=== PATIENT | male | born 1970 | race Caucasian/White ===

== ENCOUNTER 2022-09-08 21:32 | Inpatient (IN) | payer OTHER, SELFPAY ==
[2022-09-08] VITALS (9 sets, daily range): BP systolic 117–137; BP diastolic 77–95; PULSE 148–152; RESP 20–39; TEMP 36.9; O2SAT 94–99; BMI 39.5
--- NOTE | 2022-09-08 21:43 | DI.RAD.S_ITS ---
PROCEDURE: XR CHEST 1V INDICATIONS: chest pain TECHNIQUE: One view of the chest was acquired. COMPARISON: None. FINDINGS: Surgical changes and devices: None. Lungs and pleura: Lungs are edematous. No pleural effusions or pneumothorax. Mediastinum: Mediastinal contours appear normal. Heart size is mildly enlarged. Bones and chest wall: No suspicious bony lesions. Overlying soft tissues appear unremarkable. IMPRESSION: Mild cardiomegaly, mild to moderate pulmonary edema pattern bilaterally. Dictated by: Fernando Austin M.D. on 09/08/2022 at 21:52 Approved by: Fernando Austin M.D. on 09/08/2022 at 21:52
[2022-09-08] MEDS: ASPIRIN 81 MG CHEW TAB 324 MG PO (21:52)
[2022-09-08 22:05] LABS: Add Manual Diff / Slide Review NO; Basophils Absolute Auto 100 /uL (0-100); Basophils Percent Auto 1.3 % (0-2); Eosinophils Absolute Auto 200 /uL (0-450); Eosinophils Percent Auto 2.8 % (2-4); Hematocrit 43.9 % (41-53); Hemoglobin 14.7 g/dL (13.5-17.5); Lymphocytes Absolute Auto 2200 /uL (1100-4500); Mean Corpuscular HGB Conc 33.5 % (30-36); Mean Corpuscular Hemoglobin 28.6 PG (26-34); Mean Corpuscular Volume 85.2 fL (80-100); Monocytes Absolute Auto 700 /uL (0-900); Monocytes Percent Auto 8.1 % (3-14); Neutrophils Absolute Auto 5200 /uL (1500-7000); Neutrophils Percent Auto 61.8 % (50-75); Platelet Count 205 X10^3/uL (150-400); Red Blood Cell Count 5.15 X10^6/uL (4.5-5.9); Red Cell Distribution Width 13.9 % (11.6-14.8); White Blood Cell Count 8.4 X10^3/uL (4.5-11.0)
[2022-09-08 22:12] LABS: INR 1.3 (0.9-1.3)
[2022-09-08 22:15] LABS: PTT Partial Thromboplastin Tim 31 SECONDS (26-36)
--- NOTE | 2022-09-08 22:15 | DI.US.S_ITS ---
PROCEDURE: US PERIPH VENOUS LOW EXTREM BI INDICATIONS: EDEMA, WARMTH TECHNIQUE: Real-time imaging, as well as color and pulse Doppler interrogation, were performed of the deep veins of both legs from the inguinal ligament to the popliteal fossa. COMPARISON: None. FINDINGS: Right: The common femoral, femoral and popliteal veins are normally compressible, and free of intraluminal thrombus. Color and pulse Doppler demonstrate normal phasic intravascular flow. There is normal augmentation response to distal compression maneuver. Left: The common femoral, femoral and popliteal veins are normally compressible, and free of intraluminal thrombus. Color and pulse Doppler demonstrate normal phasic intravascular flow. There is normal augmentation response to distal compression maneuver. IMPRESSION: No DVT found over the lower extremities bilaterally. Dictated by: Fernando Austin M.D. on 09/08/2022 at 23:39 Approved by: Fernando Austin M.D. on 09/08/2022 at 23:39
--- NOTE | 2022-09-08 22:16 | ED_ITS ---
HPI - Arrhythmia/Palpitations General Chief Complaint: Arrhythmia/Palpitations Stated Complaint: Foot/knee/groin swelling Time Seen by Provider: 09/08/22 22:00 Source: patient Mode of arrival: Ambulatory Limitations: no limitations History of Present Illness HPI narrative: This is a 51-year-old male with no known medical issues, no prior surgeries who presents with bilateral lower extremity swelling patient states his feet felt tight starting SaturdaySeptember 03, he noticed increasing swelling in the lower legs and then today noticed swelling from the knees up to the testicular area. Patient states they feel warm tight just slightly uncomfortable. He states no chest pain, he states maybe some shortness of breath he feels like his breathing is shallow. He does note that he has not been able to lie flat this week. Patient denies fevers or chills. Denies lightheadedness or passing out. No nausea or vomiting. No diaphoresis. He denies any back pain. Some lower abdominal fullness but states he is also been constipated. Patient denies any sensation that her heart has been fast although he is tachycardic in the department. Patient states he has a PCP but does not get annual checks. No known medical issues no daily medications. No prior surgeries. He denies any drug allergies. No tobacco, he states he drinks 2 or 3 alcoholic drinks 2 or 3 times weekly. Denies any illicit. States he is adopted and does not know his family history. He notes that he had some sort of viral illness over [place] vacation he works as a school admissions representative so he did sit in his chair little bit more than he would typically do at home during that time. Patient states his only family currently is his 18-year-old son who lives with the patient. Related Data Allergies Allergy/AdvReac Type Severity Reaction Status Date / Time No Known Drug Allergies Allergy Verified 09/08/22 21:51 Review of Systems Review of Systems ROS Unobtainable: All systems reviewed & are unremarkable except as noted in HPI and below Patient History Social History Smoking Status: Never smoker Smoking Status: Never smoker alcohol intake frequency: a few times a week Substance Use Type: does not use Exam Narrative Exam Narrative: GENERAL: Alert and oriented x three, mild distress. HEENT: Head normocephalic, atraumatic, EOMI, pupils reactive, face symmetric, moist mucous membranes NECK: Supple, full range of motion CARDIOVASCULAR: Tachycardic but Regular rate and rhythm without murmurs, rubs or gallops. Mild JVD. Bilateral lower extremity swelling extending up to the groin. Nonpitting. Patient does have some warmth redness in the lower extremities right and left. Patient also has some chronic venous stasis changes. RESPIRATORY: Breath sounds equal bilaterally, no wheezes rales or rhonchi. ABDOMEN: Soft, nontender. Normoactive bowel sounds all 4 quadrants. No guarding or rebound, rigidity, no mass : No CVA tenderness EXTREMITIES: Normal range of motion, no clubbing or edema. Neurovascularly intact NEUROLOGICAL: Cranial nerves II through XII grossly intact. Moving all extremities SKIN: Warm, dry, no petechiae, no rashes or lesions. Initial Vital Signs Initial Vital Signs: Vital Signs Temperature 98.4 F 09/08/22 21:35 Pulse Rate 152 H 09/08/22 21:35 Respiratory Rate 20 09/08/22 21:35 Blood Pressure 135/92 H 09/08/22 21:35 Pulse Oximetry 99 09/08/22 21:35 Oxygen Delivery Method 09/08/22 21:35 Course Orders Ordered: ED Orders 09/08/22 21:43 XR chest 1V Stat EKG-12 Lead Stat 09/08/22 21:52 BNP [NT-proBNP (BNP-Adult 18+)] Stat Complete Blood Count AUTO DIFF Stat Comprehensive Metabolic Panel Stat D Dimer Stat Lipase Stat Magnesium Stat Partial Thromboplastin Time Stat Prothrombin Time INR Stat Troponin & CK Cardiac Panel Stat 09/08/22 22:00 COVID19 -Nasal RAPID/Pre-Proc Stat 09/08/22 22:15 periph venous low extrem bi Stat 09/08/22 22:51 CT angio chest PE protocol Stat Discontinued Medications Aspirin (Aspirin 81 Mg Chew Tab) 324 mg PO NOW ONE Stop: 09/08/22 21:44 Last Admin: 09/08/22 21:52 Dose: 324 mg Documented By: AT Furosemide (Furosemide 40 Mg/4 Ml Vial) 40 mg IV NOW ONE Stop: 09/08/22 22:17 Last Admin: 09/08/22 22:29 Dose: 40 mg Documented By: Vital Signs Vital signs: Vital Signs - 8 hr 09/08/22 21:35 Temperature 98.4 F Pulse Rate 152 H Respiratory Rate 20 Blood Pressure 135/92 H Pulse Oximetry 99 Oxygen Delivery Method Room Air MDM - Arrhythmia/Palpitations Lab Data Result diagrams: 09/08/22 21:52 09/08/22 21:52 Labs: Lab Results 09/08/22 09/08/22 09/08/22 Range/Units 21:52 21:52 21:52 WBC 8.4 (4.5-11.0) X10^3/uL RBC 5.15 (4.5-5.9) X10^6/uL Hgb 14.7 (13.5-17.5) g/dL Hct 43.9 (41-53) % MCV 85.2 (80-100) fL MCH 28.6 (26-34) PG MCHC 33.5 (30-36) % RDW 13.9 (11.6-14.8) % Plt Count 205 (150-400) X10^3/uL Neut % (Auto) 61.8 (50-75) % Lymph % (Auto) 26.0 (25-40) % Isabella % (Auto) 8.1 (3-14) % Eos % (Auto) 2.8 (2-4) % Baso % (Auto) 1.3 (0-2) % Neut # (Auto) 5200 (2474-7522) /uL Lymph # (Auto) 2200 (8586-8946) /uL Isabella # (Auto) 700 (0-900) /uL Eos # (Auto) 200 (0-450) /uL Baso # (Auto) 100 (0-100) /uL PT 15.0 H (10.1-12.7) SECONDS INR 1.3 (0.9-1.3) APTT 31 (26-36) SECONDS D-Dimer (<500) ng/ml Sodium 140 (137-145) mmol/L Potassium 3.9 (3.4-5.1) mmol/L Chloride 104 (98-107) mmol/L Carbon Dioxide 26 (22-32) mmol/L BUN 16 (9-20) mg/dL Creatinine 0.95 (0.66-1.25) mg/dL Estimated GFR > 60 (>60) mL/min BUN/Creatinine Ratio 16.8 (6-22) Glucose 137 H (70-100) mg/dL Calcium 8.8 (8.4-10.2) mg/dL Magnesium 2.1 (1.6-2.3) mg/dL Total Bilirubin 0.8 (0.2-1.3) mg/dL AST 32 (17-59) IU/L ALT 25 (<50) IU/L Alkaline Phosphatase 71 (38-126) U/L Total Creatine Kinase 160 (55-170) U/L CK-MB (CK-2) 1.63 (<2.37) ng/mL CK-MB (CK-2) Rel Index 1.0 L (1.5-5.0) % Troponin I < 0.012 (0.01-0.034) ng/mL NT-Pro-B Natriuret Pep (<125) pg/mL Total Protein 7.4 (6.3-8.2) g/dL Albumin 4.1 (3.5-5.0) g/dL Globulin 3.3 (1.7-4.1) g/dL Albumin/Globulin Ratio 1.2 (1.0-2.8) Lipase 87 (23-300) U/L SARS-CoV-2 (PCR) (Negative) 09/08/22 09/08/22 09/08/22 Range/Units 21:52 21:52 22:00 WBC (4.5-11.0) X10^3/uL RBC (4.5-5.9) X10^6/uL Hgb (13.5-17.5) g/dL Hct (41-53) % MCV (80-100) fL MCH (26-34) PG MCHC (30-36) % RDW (11.6-14.8) % Plt Count (150-400) X10^3/uL Neut % (Auto) (50-75) % Lymph % (Auto) (25-40) % Isabella % (Auto) (3-14) % Eos % (Auto) (2-4) % Baso % (Auto) (0-2) % Neut # (Auto) (9030-7818) /uL Lymph # (Auto) (4970-1094) /uL Isabella # (Auto) (0-900) /uL Eos # (Auto) (0-450) /uL Baso # (Auto) (0-100) /uL PT (10.1-12.7) SECONDS INR (0.9-1.3) APTT (26-36) SECONDS D-Dimer 1570 H (<500) ng/ml Sodium (137-145) mmol/L Potassium (3.4-5.1) mmol/L Chloride (98-107) mmol/L Carbon Dioxide (22-32) mmol/L BUN (9-20) mg/dL Creatinine (0.66-1.25) mg/dL Estimated GFR (>60) mL/min BUN/Creatinine Ratio (6-22) Glucose (70-100) mg/dL Calcium (8.4-10.2) mg/dL Magnesium (1.6-2.3) mg/dL Total Bilirubin (0.2-1.3) mg/dL AST (17-59) IU/L ALT (<50) IU/L Alkaline Phosphatase (38-126) U/L Total Creatine Kinase (55-170) U/L CK-MB (CK-2) (<2.37) ng/mL CK-MB (CK-2) Rel Index (1.5-5.0) % Troponin I (0.01-0.034) ng/mL NT-Pro-B Natriuret Pep 1180 H (<125) pg/mL Total Protein (6.3-8.2) g/dL Albumin (3.5-5.0) g/dL Globulin (1.7-4.1) g/dL Albumin/Globulin Ratio (1.0-2.8) Lipase (23-300) U/L SARS-CoV-2 (PCR) Negative (Negative) Imaging Data Chest x-ray: Radiologist's Impresson: [address] [address] XRay Report Signed Patient: Giorgio Escoto MR#: [id number] : 1970 Acct:[id number] Age/Sex: 51 / M Date of Service: 09/08/22 Loc: ED Accession Number: [id number] ?? Procedure: XR chest 1V Ordering Provider: Porsha Urban D.O. PROCEDURE:? XR CHEST 1V ? INDICATIONS:? chest pain ? TECHNIQUE:? One view of the chest was acquired.? ? COMPARISON:? None. ? FINDINGS:? ? Surgical changes and devices:? None.? ? Lungs and pleura:? Lungs are edematous.? No pleural effusions or pneumothorax.? ? Mediastinum:? Mediastinal contours appear normal.? Heart size is mildly enlar ged.? ? Bones and chest wall:? No suspicious bony lesions.? Overlying soft tissues appear unremarkable.? ? IMPRESSION:? Mild cardiomegaly, mild to moderate pulmonary edema pattern bilaterally. ? ? Dictated by: Fernando Austin M.D. on 09/08/2022 at 21:52 ? ? Approved by: Fernando Austin M.D. on 09/08/2022 at 21:52?? ECG Data Attestation: I personally reviewed and interpreted this ECG as follows: Prior ECG tracings: not available for review Interpretation: Sinus tachycardia rate of 140 9p are 148 QRS 80 QTC 311. Patient does appear to have P waves present with each QRS narrow. Patient does not have priors for comparison. No acute ST elevation appreciated. MDM Narrative Medical decision making narrative: This is a 51-year-old male who presents appears to be clinically fluid overloaded and in CHF he does have warmth and redness to his legs and did have a period where he was sitting little bit longer. Also tachycardic pretty persistently in the 150 range does appear to be more sinus patient appears to have P waves with his QRS. Patient does not have any known cardiac history he does not follow regularly with a primary care physician he does not have any sensation that he has been tachycardic and I suspect he is been a situation for some time. Swelling has been worsening over the past week. He denies chest pain or pressure. Plan for cardiac workup, chest x-ray does show some pulmonary edema cardiomegaly bilateral DVTs and D-dimer were obtained to evaluate for possible pulmonary emboli. Patient also notes that he had a recent viral type illness over [place] so myocarditis as possibility as well. Result show Discharge Plan Departure Referrals: Naima Priest PA-C [Primary Care Provider] -
[2022-09-08 22:17] LABS: Alanine Aminotransferase 25 IU/L (<50); Albumin 4.1 g/dL (3.5-5.0); Albumin Globulin Ratio 1.2 (1.0-2.8); Alkaline Phosphatase 71 U/L (38-126); Aspartate Aminotransferase 32 IU/L (17-59); BUN Creatinine Ratio 16.8 (6-22); Bilirubin Total 0.8 mg/dL (0.2-1.3); Blood Urea Nitrogen 16 mg/dL (9-20); Calcium 8.8 mg/dL (8.4-10.2); Carbon Dioxide 26 mmol/L (22-32); Chloride 104 mmol/L (98-107); Creatine Kinase 160 U/L (55-170); Estimated Glomerular Filt Rate > 60 mL/min (>60); Globulin 3.3 g/dL (1.7-4.1); Glucose 137 mg/dL (70-100); HEMOLYSIS < 15 (0-50); Lipase 87 U/L (23-300); Magnesium 2.1 mg/dL (1.6-2.3); Potassium 3.9 mmol/L (3.4-5.1); Sodium 140 mmol/L (137-145); Total Protein 7.4 g/dL (6.3-8.2)
[2022-09-08 22:17] LABS: COVID19 -Nasal RAPID Negative (Negative)
[2022-09-08 22:28] LABS: Troponin I < 0.012 ng/mL (0.01-0.034)
[2022-09-08] MEDS: FUROSEMIDE 40 MG/4 ML VIAL IV (22:29)
[2022-09-08 22:32] LABS: Creatine Kinase MB 1.63 ng/mL (<2.37); NT-proBNP (BNP-Adult 18+) 1180 pg/mL (<125)
[2022-09-08 22:41] LABS: D Dimer 1570 ng/ml (<500)
--- NOTE | 2022-09-08 22:51 | DI.CT.S_ITS ---
PROCEDURE: CT ANGIO CHEST PE PROTOCOL INDICATIONS: concern for PE, tachycardia, chf, swelling legs TECHNIQUE: After the administration of intravenous contrast, 2 mm thick sections acquired from the pulmonary apices to the posterior costophrenic angles. 3-dimensional maximum intensity projection (MIP) coronal and sagittal reformats were then acquired through the thorax. For radiation dose reduction, the following was used: automated exposure control, adjustment of mA and/or kV according to patient size. COMPARISON: [facility], CR, XR CHEST 1V, 09/08/2022, 21:41. FINDINGS: Image quality: Excellent. Pulmonary arteries: Pulmonary arteries are normal in size, and demonstrate no intraluminal filling defects to suggest central pulmonary embolism. Lungs and pleura: Lungs are mildly edematous. There are small to moderate bilateral posterior layering pleural effusions and no pneumothorax. Central and peripheral airways are patent. Mediastinum: Heart size is mildly enlarged, without pericardial effusion. No mediastinal or hilar adenopathy. Thoracic aorta is normal in caliber and enhancement. Esophagus is normal in caliber, without hiatal hernia. Bones and chest wall: No suspicious bony lesions. Ribs and thoracic spine appear intact throughout. Thyroid gland appears normal where well seen. No axillary or supraclavicular adenopathy. Abdomen: Visualized upper abdominal solid organs appear normal in the early arterial phase of enhancement. IMPRESSION: No pulmonary embolus found. Mild cardiomegaly, mild generalized pulmonary edema, and small to moderate bilateral posterior free-flowing pleural effusions. No pneumonia found. Dictated by: Fernando Austin M.D. on 09/08/2022 at 23:39 Approved by: Fernando Austin M.D. on 09/08/2022 at 23:41
--- NOTE | 2022-09-08 23:24 | ED_ITS ---
HPI - Arrhythmia/Palpitations General Chief Complaint: Arrhythmia/Palpitations Stated Complaint: Foot/knee/groin swelling Time Seen by Provider: 09/08/22 22:00 Source: patient Mode of arrival: Ambulatory Limitations: no limitations Related Data Allergies Allergy/AdvReac Type Severity Reaction Status Date / Time No Known Drug Allergies Allergy Verified 09/08/22 21:51 Patient History Social History Smoking Status: Never smoker Smoking Status: Never smoker alcohol intake frequency: a few times a week Substance Use Type: does not use Exam Initial Vital Signs Initial Vital Signs: Vital Signs Temperature 98.4 F 09/08/22 21:35 Pulse Rate 152 H 09/08/22 21:35 Respiratory Rate 20 09/08/22 21:35 Blood Pressure 135/92 H 09/08/22 21:35 Pulse Oximetry 99 09/08/22 21:35 Oxygen Delivery Method 09/08/22 21:35 Course Orders Ordered: ED Orders 09/08/22 21:43 XR chest 1V Stat EKG-12 Lead Stat 09/08/22 21:52 BNP [NT-proBNP (BNP-Adult 18+)] Stat Complete Blood Count AUTO DIFF Stat Comprehensive Metabolic Panel Stat D Dimer Stat Lipase Stat Magnesium Stat Partial Thromboplastin Time Stat Prothrombin Time INR Stat Troponin & CK Cardiac Panel Stat 09/08/22 22:00 COVID19 -Nasal RAPID/Pre-Proc Stat 09/08/22 22:15 periph venous low extrem bi Stat 09/08/22 22:51 CT angio chest PE protocol Stat Discontinued Medications Aspirin (Aspirin 81 Mg Chew Tab) 324 mg PO NOW ONE Stop: 09/08/22 21:44 Last Admin: 09/08/22 21:52 Dose: 324 mg Documented By: AT Furosemide (Furosemide 40 Mg/4 Ml Vial) 40 mg IV NOW ONE Stop: 09/08/22 22:17 Last Admin: 09/08/22 22:29 Dose: 40 mg Documented By: GC Consultations Consultation #1: Dr. Perez, cardiology-discussed patient Vital Signs Vital signs: Vital Signs - 8 hr 09/08/22 21:35 Temperature 98.4 F Pulse Rate 152 H Respiratory Rate 20 Blood Pressure 135/92 H Pulse Oximetry 99 Oxygen Delivery Method Room Air MDM - Arrhythmia/Palpitations Lab Data Result diagrams: 09/08/22 21:52 09/08/22 21:52 Labs: Lab Results 09/08/22 09/08/22 09/08/22 Range/Units 21:52 21:52 21:52 WBC 8.4 (4.5-11.0) X10^3/uL RBC 5.15 (4.5-5.9) X10^6/uL Hgb 14.7 (13.5-17.5) g/dL Hct 43.9 (41-53) % MCV 85.2 (80-100) fL MCH 28.6 (26-34) PG MCHC 33.5 (30-36) % RDW 13.9 (11.6-14.8) % Plt Count 205 (150-400) X10^3/uL Neut % (Auto) 61.8 (50-75) % Lymph % (Auto) 26.0 (25-40) % [place] % (Auto) 8.1 (3-14) % Eos % (Auto) 2.8 (2-4) % Baso % (Auto) 1.3 (0-2) % Neut # (Auto) 5200 (8828-6368) /uL Lymph # (Auto) 2200 (8373-3396) /uL [place] # (Auto) 700 (0-900) /uL Eos # (Auto) 200 (0-450) /uL Baso # (Auto) 100 (0-100) /uL PT 15.0 H (10.1-12.7) SECONDS INR 1.3 (0.9-1.3) APTT 31 (26-36) SECONDS D-Dimer (<500) ng/ml Sodium 140 (137-145) mmol/L Potassium 3.9 (3.4-5.1) mmol/L Chloride 104 (98-107) mmol/L Carbon Dioxide 26 (22-32) mmol/L BUN 16 (9-20) mg/dL Creatinine 0.95 (0.66-1.25) mg/dL Estimated GFR > 60 (>60) mL/min BUN/Creatinine Ratio 16.8 (6-22) Glucose 137 H (70-100) mg/dL Calcium 8.8 (8.4-10.2) mg/dL Magnesium 2.1 (1.6-2.3) mg/dL Total Bilirubin 0.8 (0.2-1.3) mg/dL AST 32 (17-59) IU/L ALT 25 (<50) IU/L Alkaline Phosphatase 71 (38-126) U/L Total Creatine Kinase 160 (55-170) U/L CK-MB (CK-2) 1.63 (<2.37) ng/mL CK-MB (CK-2) Rel Index 1.0 L (1.5-5.0) % Troponin I < 0.012 (0.01-0.034) ng/mL NT-Pro-B Natriuret Pep (<125) pg/mL Total Protein 7.4 (6.3-8.2) g/dL Albumin 4.1 (3.5-5.0) g/dL Globulin 3.3 (1.7-4.1) g/dL Albumin/Globulin Ratio 1.2 (1.0-2.8) Lipase 87 (23-300) U/L SARS-CoV-2 (PCR) (Negative) 09/08/22 09/08/22 09/08/22 Range/Units 21:52 21:52 22:00 WBC (4.5-11.0) X10^3/uL RBC (4.5-5.9) X10^6/uL Hgb (13.5-17.5) g/dL Hct (41-53) % MCV (80-100) fL MCH (26-34) PG MCHC (30-36) % RDW (11.6-14.8) % Plt Count (150-400) X10^3/uL Neut % (Auto) (50-75) % Lymph % (Auto) (25-40) % [place] % (Auto) (3-14) % Eos % (Auto) (2-4) % Baso % (Auto) (0-2) % Neut # (Auto) (6252-7334) /uL Lymph # (Auto) (4508-8295) /uL [place] # (Auto) (0-900) /uL Eos # (Auto) (0-450) /uL Baso # (Auto) (0-100) /uL PT (10.1-12.7) SECONDS INR (0.9-1.3) APTT (26-36) SECONDS D-Dimer 1570 H (<500) ng/ml Sodium (137-145) mmol/L Potassium (3.4-5.1) mmol/L Chloride (98-107) mmol/L Carbon Dioxide (22-32) mmol/L BUN (9-20) mg/dL Creatinine (0.66-1.25) mg/dL Estimated GFR (>60) mL/min BUN/Creatinine Ratio (6-22) Glucose (70-100) mg/dL Calcium (8.4-10.2) mg/dL Magnesium (1.6-2.3) mg/dL Total Bilirubin (0.2-1.3) mg/dL AST (17-59) IU/L ALT (<50) IU/L Alkaline Phosphatase (38-126) U/L Total Creatine Kinase (55-170) U/L CK-MB (CK-2) (<2.37) ng/mL CK-MB (CK-2) Rel Index (1.5-5.0) % Troponin I (0.01-0.034) ng/mL NT-Pro-B Natriuret Pep 1180 H (<125) pg/mL Total Protein (6.3-8.2) g/dL Albumin (3.5-5.0) g/dL Globulin (1.7-4.1) g/dL Albumin/Globulin Ratio (1.0-2.8) Lipase (23-300) U/L SARS-CoV-2 (PCR) Negative (Negative) Discharge Plan Departure Referrals: Naima Priest PA-C [Primary Care Provider] -
[2022-09-09] VITALS (66 sets, daily range): BP systolic 83–153; BP diastolic 54–107; PULSE 113–150; RESP 18–45; TEMP 36.6–37.3; O2SAT 89–97; BMI 40.8
[2022-09-09] MEDS: ADENOSINE 6 MG/2 ML VIAL IV (00:18)
[2022-09-09] MEDS: ADENOSINE 6 MG/2 ML VIAL 12 MG IV (00:26)
[2022-09-09] MEDS: METOPROLOL TARTRATE 5 MG/5 ML INJ IV (00:35)
[2022-09-09 01:09] LABS: Troponin I < 0.012 ng/mL (0.01-0.034)
--- NOTE | 2022-09-09 01:50 | DI.ECHO.S_ITS ---
[facility] +---------+ [facility] +---------+ : : [address] : : : : [id number] : : : : Phone: [phone]+ Echocardiogram Report + + :Name: LAMONTE SAMUEL Study Date: 09/09/2022 Height: 74 in : :[facility] ReadingLocation: Weight: 308 lb : : Gender: Male BSA: 2.6 m2 : :: 1970 Age: 51 yrs BP: 112/69 mmHg: :Reason For Study: Possible atrial flutter, edema, new CHF : :Ordering Physician: RAJAN, : :JUSTINO Performed By: Dee Amos : :Referring: JUSTINO TOLENTINO : + + Interpretation Summary The patient was in atrial flutter with heart rates between 110-120 bpm during the exam. The left ventricle is normal in size. The ejection fraction is estimated to be 20-25%. There is severe global hypokinesis of the left ventricle. There is no thrombus. The right ventricle is grossly normal size. Right ventricular systolic function is moderately reduced. There is severe biatrial enlargement. There is moderate mitral regurgitation. The mitral regurgitant jet is eccentrically directed. There is moderate tricuspid regurgitation. The right ventricular systolic pressure is estimated to be at least 33 mmHg based on an estimated right atrial pressure of 15 mm Hg. The study quality was technically difficult. Procedure: A two-dimensional transthoracic echocardiogram with color flow and Doppler was performed. The study quality was technically difficult. A contrast injection of Definity was performed to improve assessment of LV function. The patient was in atrial flutter with heart rates between 110-120 bpm during the exam. Left Ventricle: The left ventricle is normal in size. Left ventricular wall thickness is at the upper limits of normal. There is no thrombus. The ejection fraction is estimated to be 20-25%. There is severe global hypokinesis of the left ventricle. Diastolic function could not be accurately assessed due to tachycardia. Right Ventricle: The right ventricle is not well visualized. The right ventricle is grossly normal size. Right ventricular systolic function is moderately reduced. Atria: The left atrium is severely dilated. There is severe biatrial enlargement. The right atrium is severely dilated. There is no Doppler evidence for an interatrial shunt. Mitral Valve: The mitral valve leaflets are slightly calcified. There is mild mitral annular calcification. There is moderate mitral regurgitation. The mitral regurgitant jet is eccentrically directed. Aortic Valve: The aortic valve is normal in structure and function. The aortic valve is trileaflet. There is no aortic valve stenosis. No aortic regurgitation is present. Tricuspid Valve: The tricuspid valve is normal. There is moderate tricuspid regurgitation. The right ventricular systolic pressure is estimated to be at least 33 mmHg based on an estimated right atrial pressure of 15 mm Hg. Pulmonic Valve: The pulmonic valve leaflets are thin and pliable; valve motion is normal. There is trace pulmonic regurgitation. Great Vessels: The aortic root is mildly dilated. The ascending aorta is at the upper limits of normal in size. The IVC is dilated (diameter is greater than 2.1 cm) and it collapses less than 50% with a sniff. This suggests a high right atrial pressure of 15 mm Hg. Pericardium/ Pleura There is no pericardial effusion. There is no pleural effusion. MMode/2D Measurements & Calculations LVIDd: 5.1 cm LVOT diam: 2.6 cm LVIDs: 4.3 cm Ao root diam: 4.0 cm FS: 15.7 % asc Aorta Diam: 3.5 cm EPSS: 2.1 cm IVSd: 1.1 cm LVPWd: 1.0 cm LV elizondo. diameter/BSA (cm/m^2): 2.0 LV sys. diameter/BSA (cm/m^2): 1.6 LA dimension: 5.1 cm RA long axis: 6.9 cm LA A2 area: 32.7 cm2 RA area: 33.9 cm2 LA A4 area: 29.5 cm2 RA vol: 141.6 ml LA length (vol): 6.6 cm RA : 54.2 ml/m2 LA vol: 123.5 ml LA vol index: 47.3 ml/m2 LVLs ap4: 7.3 cm LVLd ap2: 9.5 cm LVLs ap2: 8.0 cm TAPSE_phl: 1.5 cm Doppler Measurements & Calculations Ao V2 max: 75.7 cm/sec LVOT Max Alexi: 58.4 cm/sec Ao V2 mean: 61.0 cm/sec LV V1 max P.4 mmHg Ao max P.0 mmHg LV V1 VTI: 11.6 cm Ao mean P.0 mmHg HAIM(I,D): 4.8 cm2 Ao V2 VTI: 12.8 cm HAIM(V,D): 4.1 cm2 sev ratio: 0.91 HAIM indexed to BSA (cm^2/m^2): 1.8 MV E max alexi: 75.8 cm/sec TR max alexi: 185.5 cm/sec MVA(VTI): 5.5 cm2 TR max P.6 mmHg PA V2 max: 38.8 cm/sec PA V2 mean: 27.4 cm/sec PA mean P.00 mmHg MV V2 mean: 53.7 cm/sec MR VTI: 107.0 cm MV mean P.5 mmHg MV V2 VTI: 11.3 cm SV(LVOT): 61.6 ml AV VR_phl: 0.77 HAIM(VTI)/BSA_phl: 1.8 Reading Physician:03:27 PM
[2022-09-09 01:53] LABS: UR Morphine/Opiate cutoff 300 Negative (Negative); Ur Creatinine 20 (Normal); Ur Specific Gravity 1.015 (Normal); Urine Amphetamines Negative (Negative); Urine Barbiturates Negative (Negative); Urine Benzodiazepines Negative (Negative); Urine Cocaine Negative (Negative); Urine MDMA Negative (Negative); Urine Methadone Negative (Negative); Urine Methamphetamines Negative (Negative); Urine Oxycodone Negative (Negative); Urine Phencyclidine Negative (Negative); Urine Tetrahydrocannabinol Negative (Negative); Urine Tricyclic Antidepressant Negative (Negative); Urine pH 5 (Normal)
[2022-09-09] MEDS: ESMOLOL 2.5 GM/250 ML IV.SOLN IV ×4 (02:00→20:57)
--- NOTE | 2022-09-09 02:10 | PM.HP.1 ---
History of Present Illness History of Present Illness Date Patient Seen: 09/09/22 Time Patient Seen: 02:10 Chief complaint: Foot/knee/groin swelling Narrative: Giorgio Escoto is a 51-year-old male with no known medical history, no medications who presents with bilateral lower extremity swelling x1 week but is worsened in the last 24 hours, initially swelling in the lower legs, today noticed swelling from the knees up to the testicular area. Patient notes increasing mild shortness of breath, with orthopnea. Denies chest pain, unable to lie flat, denies fevers, body aches, chills, lightheadedness, LOC, nausea, vomiting, diaphoresis, back pain, urinary urgency frequency dysuria, hematuria, melena, changes in bowel, cough, congestion, ear or eye discomfort, recent injury or trauma.? Some abdominal fullness due to constipation. Patient's has no sensation or symptoms his tachycardia.? Patient states he has a PCP but does not get annual checks.? He denies any drug allergies.? No tobacco, he reports a distant history smoking. alcoholic drinks 2 or 3 times weekly.? Denies any illicit.? States he is adopted and does not know his family history.? He notes that he had some sort of viral illness over [place] vacation he works as a high school social science teacher.? Patient states his only family currently is his 18-year-old son who lives with the patient. In the ED patient's blood pressure is ran between 135/92 to 117/80, HR 152-148, patient's tachycardia was resistant to 12 mg of adenosine, and 5 mg of metoprolol. Patient's labs are predominantly unremarkable, stable potassium 3.9, magnesium 2.1, elevated PT 15, with normal INR 1.5, D-dimer 1570, CTA is negative for PE noted mild cardiomegaly a mild generalized pulmonary edema bilaterally, small to moderate bilateral post free-flowing pleural effusion. Negative COVID, during admit exam patient's O2 saturation dropped to 80% on room air multiple times, and was extremely labile, patient was placed on 2 L nasal cannula. troponins negative x2, EKG sinus tachycardia rate 140, P-QRS, no ST or T-wave changes. No notes, labs, or diagnostics for comparison. Vascular ultrasound of lower extremities are negative for DVT. Patient admitted for tachycardia, tachypnea, bilateral lower extremity edema, new onset CHF, acute respiratory failure with hypoxia. Patient History Medical History (Updated 09/09/22 @ 05:57 by MARIELLA Awan) BMI 40.0-44.9, adult Surgical History (Updated 09/09/22 @ 05:57 by MARIELLA Awan) History of hernia repair History of tonsillectomy Family & Social History Family History Other Adopted Safety & Behavioral: Feels Safe in Current Yes Environment Tobacco & Substance use: Smoking Status Never smoker alcohol intake frequency a few times a week Substance Use Type does not use Meds Home Medications and Allergies Allergies Allergy/AdvReac Type Severity Reaction Status Date / Time No Known Drug Allergies Allergy Verified 09/08/22 21:51 Review of Systems Review of Systems Narrative: All 12 point systems reviewed with the patient and are negative except otherwise documented. Exam Vital Signs (past 8 hours): - 09/08/22 21:35 09/08/22 21:45 09/08/22 22:00 Temperature 98.4 F Pulse Rate 152 H 150 H 149 H Respiratory Rate 20 25 H Blood Pressure 135/92 H 119/77 117/80 Pulse Oximetry 99 95 Oxygen Delivery Method Room Air 09/08/22 22:15 09/08/22 22:30 09/08/22 22:45 Temperature Pulse Rate 150 H 150 H 149 H Respiratory Rate 33 H 27 H 28 H Blood Pressure 137/95 H Pulse Oximetry 96 95 96 Oxygen Delivery Method 09/08/22 23:00 09/08/22 23:15 09/08/22 22:30 Temperature Pulse Rate 149 H 148 H 150 H Respiratory Rate 29 H 31 H Blood Pressure Pulse Oximetry 95 98 94 Oxygen Delivery Method 09/08/22 23:45 09/09/22 00:00 09/09/22 01:11 Temperature Pulse Rate 150 H 150 H 145 H Respiratory Rate 39 H 32 H 35 H Blood Pressure 123/84 Pulse Oximetry 95 93 95 Oxygen Delivery Method 09/09/22 01:19 09/09/22 01:19 09/09/22 01:30 Temperature Pulse Rate 145 H Respiratory Rate 43 H Blood Pressure 109/76 119/68 Pulse Oximetry 97 Oxygen Delivery Method 09/09/22 01:30 Temperature Pulse Rate 144 H Respiratory Rate 31 H Blood Pressure Pulse Oximetry 95 Oxygen Delivery Method Oxygen Delivery Method Room Air Narrative Exam Narrative: General: Patient is a well-developed, well-nourished male in no acute distress at this time, patient does not feel tachycardia, would noted observable increased work of breathing and use abdominal accessory muscles. HEENT: Normocephalic, atraumatic, extraocular muscles intact, oral pharynx is clear and mucous membranes are moist. Neck is supple and symmetric, trachea is midline, no adenopathy, no thyroid enlargement, nontender, no masses palpated. Mild JVD Chest: Normal AP diameter and contour without kyphoscoliosis, no nasal flaring, Positive retractions,tachypneic and labored breathing. Lungs: Auscultation of all lung rolle are clear shallow without adventitious sounds, wheezes, rhonchi, or rales. Cardio: Tachycardic regular and rhythm without murmur, rubs, or gallops, no carotid bruit, no cardiac pulsations present. Abdomen: Soft nontender, negative for organomegaly, or masses. Bowel sounds are present in all 4 quadrants without guarding or rebound, no CVA tenderness. Musculoskeletal: Muscle strength and tone are equal within normal limits, no deformity, crepitus, effusions, cyanosis, clubbing present. Full range of motion intact radial and pedal pulses are normal. Bilateral equal nonpitting edema from testicles to feet. Skin: Warm dry and intact without rashes, ulcerations or petechiae. With the exception of bilateral legs which are warm to touch, and mild diffuse redness no skin injuries/cellulitis noted. Neuro: Alert and orientated x3, strength is +5/5 in all extremities, sensation to touch intact, no gross deficits noted of cranial nerves. Psych: Patient has a well-kept appearance, appropriate affect, mental status attitude thought context and judgment are appropriate for age. Objective Labs Result Diagrams: 09/09/22 04:29 09/09/22 04:29 Labs: Laboratory Results - last 24 hr 09/08/22 09/08/22 09/08/22 21:52 21:52 21:52 WBC 8.4 RBC 5.15 Hgb 14.7 Hct 43.9 MCV 85.2 MCH 28.6 MCHC 33.5 RDW 13.9 Plt Count 205 Neut % (Auto) 61.8 Lymph % (Auto) 26.0 Bullitt % (Auto) 8.1 Eos % (Auto) 2.8 Baso % (Auto) 1.3 Neut # (Auto) 5200 Lymph # (Auto) 2200 Bullitt # (Auto) 700 Eos # (Auto) 200 Baso # (Auto) 100 PT 15.0 H INR 1.3 APTT 31 D-Dimer Sodium 140 Potassium 3.9 Chloride 104 Carbon Dioxide 26 BUN 16 Creatinine 0.95 Estimated GFR > 60 BUN/Creatinine Ratio 16.8 Glucose 137 H Calcium 8.8 Magnesium 2.1 Total Bilirubin 0.8 AST 32 ALT 25 Alkaline Phosphatase 71 Total Creatine Kinase 160 CK-MB (CK-2) 1.63 CK-MB (CK-2) Rel Index 1.0 L Troponin I < 0.012 NT-Pro-B Natriuret Pep Total Protein 7.4 Albumin 4.1 Globulin 3.3 Albumin/Globulin Ratio 1.2 Lipase 87 U Opiates 300ng/mL cut Ur Oxycodone Screen Urine Methadone Screen Ur Barbiturates Screen U Tricyclic Antidepress Ur Phencyclidine Scrn Ur Amphetamines Screen U Methamphetamines Scrn Ur MDMA Scrn (Ecstasy) U Benzodiazepines Scrn Urine Cocaine Screen U Marijuana (THC) Screen SARS-CoV-2 (PCR) 09/08/22 09/08/22 09/08/22 21:52 21:52 22:00 WBC RBC Hgb Hct MCV MCH MCHC RDW Plt Count Neut % (Auto) Lymph % (Auto) Bullitt % (Auto) Eos % (Auto) Baso % (Auto) Neut # (Auto) Lymph # (Auto) Bullitt # (Auto) Eos # (Auto) Baso # (Auto) PT INR APTT D-Dimer 1570 H Sodium Potassium Chloride Carbon Dioxide BUN Creatinine Estimated GFR BUN/Creatinine Ratio Glucose Calcium Magnesium Total Bilirubin AST ALT Alkaline Phosphatase Total Creatine Kinase CK-MB (CK-2) CK-MB (CK-2) Rel Index Troponin I NT-Pro-B Natriuret Pep 1180 H Total Protein Albumin Globulin Albumin/Globulin Ratio Lipase U Opiates 300ng/mL cut Ur Oxycodone Screen Urine Methadone Screen Ur Barbiturates Screen U Tricyclic Antidepress Ur Phencyclidine Scrn Ur Amphetamines Screen U Methamphetamines Scrn Ur MDMA Scrn (Ecstasy) U Benzodiazepines Scrn Urine Cocaine Screen U Marijuana (THC) Screen SARS-CoV-2 (PCR) Negative 09/09/22 09/09/22 00:07 01:42 WBC RBC Hgb Hct MCV MCH MCHC RDW Plt Count Neut % (Auto) Lymph % (Auto) Bull[place] % (Auto) Eos % (Auto) Baso % (Auto) Neut # (Auto) Lymph # (Auto) [place] # (Auto) Eos # (Auto) Baso # (Auto) PT INR APTT D-Dimer Sodium Potassium Chloride Carbon Dioxide BUN Creatinine Estimated GFR BUN/Creatinine Ratio Glucose Calcium Magnesium Total Bilirubin AST ALT Alkaline Phosphatase Total Creatine Kinase CK-MB (CK-2) CK-MB (CK-2) Rel Index Troponin I < 0.012 NT-Pro-B Natriuret Pep Total Protein Albumin Globulin Albumin/Globulin Ratio Lipase U Opiates 300ng/mL cut Negative Ur Oxycodone Screen Negative Urine Methadone Screen Negative Ur Barbiturates Screen Negative U Tricyclic Antidepress Negative Ur Phencyclidine Scrn Negative Ur Amphetamines Screen Negative U Methamphetamines Scrn Negative Ur MDMA Scrn (Ecstasy) Negative U Benzodiazepines Scrn Negative Urine Cocaine Screen Negative U Marijuana (THC) Screen Negative SARS-CoV-2 (PCR) Assessment & Plan Assessment & Plan narrative: Giorgio Escoto is a 51-year-old male with no known medical issues, no medications, unknown family hx who presents with worsening bilateral lower extremity swelling, mild shortness of breath, orthopnea, and was found to be significantly tachycardic and tachypneic in ED resistant to adenosine and metoprolol. Patient admitted to the ICU on Esmolol drip in an attempt to reduce HR that had been resistant to push medications in the ED, cardiac work up, risk stratification, evaluation of CHF, possible atrial flutter versus SVT. Patient to complete echo tomorrow, stress test once patient is off esmolol and heart rate is controlled, diuresis to resolve edema and improve respiratory function. 1. Sinus tachycardia, tachypnea, bilateral lower extremity edema, acute, present on admission -likely new onset CHF, suspect possible atrial flutter over sinus tachycardia, possible myocarditis. Patient does note that he had a viral illness a few weeks ago. -as evidence by HR 152-148, patient's tachycardia was resistant to 12 mg of adenosine, and 5 mg of metoprolol. -on admit initially HR 150, RR 32, O2 saturation 93% on room air. patient quickly dropped O2 saturations of 80% on room air during admittance to the floor. -patient placed on 2 L nasal cannula satting 92% -Close inspection patient's telemetry on 45 mcg esmolol, HR 115-125, BP 109/76, map of 88-appears rhythm is possibly an atrial flutter, dropped P waves to QRS. -admitted to ICU, monitored on telemedicine, chest pain protocol -Assess for decompensation, Acute Heart Failure, hypotension, increased pulse pressure equaling cardiogenic shock, labored breathing, cyanosis, crackles rales wheezing Mcintosh strokes respirations, lateral PMI, murmur, LV heave, hepatomegaly -Vital signs q.4 hours orthostatics q.a.m., notified for RR above 30, increasing O2 requirements, systolic BP less than 95, and urinary output less than 100 cc/hour -Esmolol drip initiated in ED -ED consulted Dr. Mcgrath -potassium 3.9, magnesium 2.1, INR 1.5: Goal -potassium>4, and magnesium >2 -troponins x2 negative, will trend -D-dimer 1570, CTA is negative for PE noted mild cardiomegaly a mild generalized pulmonary edema bilaterally, small to moderate bilateral post free-flowing pleural effusion. -Vascular ultrasound of lower extremities are negative for DVT. -EKG sinus tachycardia rate 140, P-QRS, no ST or T-wave changes. No comparisons -ordered echo, will defer nuclear med stress test until heart rate is controlled -Lasix 20 mg IV b.i.d. -ASA, Eliquis -2 L fluid restriction, low-sodium, strict I&O, daily weights -A1c, TSH, urine tox screen, ETOH, lipids 2. Obesity, moderate, acute on chronic, present on admission -dietary consult ordered regarding nutritional education and information for dietary, lifestyle, exercise, and weight changes. -the patient is at much higher risk for medical and surgical complications due to obesity as it relates to acute onset illness. The patient's obesity increases the difficulty and complexity of medical and/or surgical interventions, management and increases the chances of poor outcome such as morbidity and mortality as well as impaired wound healing. -patient's obesity is likely contributing to his acute respiratory failure, and decompensated cardiovascular health resulting in sinus tachycardia. 3. Cardiomegaly, with pulmonary edema and pleural effusions, acute, present on admission -as evidence by CTA: Mild cardiomegaly, mild generalized pulmonary edema, and small to moderate bilateral posterior free-flowing pleural effusions.? No pneumonia found. 4. Acute respiratory failure with hypoxia, tachypnea, acute, present on admission -patient demonstrated O2 saturations of 80% on room air during admittance to the floor. -patient placed on 2 L nasal cannula satting 92% -ordered VBG in a.m. -likely sleep apnea, recommended patient be referred for sleep study evaluation on discharge. Code status:Full Surrogate decision maker: Deyanira shea friend JAJA PCR:Negative DVT/VTE prophylaxis:Eliquis & SCD's Disposition: Patient admitted to the ICU, expected length of stay greater than 2 midnights. I have utilized all available immediate resources to obtain, update, or review the patient's current medications. Exception-the patient is not eligible for medication reconciliation; the patient is in an emergent medical situation were delaying treatment would jeopardize the patient's health. I confirmed that the patient's advanced care plan is present, Code status is documented and/or surrogate decision maker is listed in the patient's medical record. I have personally reviewed patient's chart notes from PCP, specialists, diagnostic imaging, and laboratory, Time Spent With Patient Critical Care time: I spent a total of [] minutes of critical care time on this patient's care today; this time is exclusive of procedural time.
[2022-09-09 02:37] LABS: Ethanol (ETOH) < 10 mg/dL
[2022-09-09 02:59] LABS: Procalcitonin 0.21 ng/mL (<0.5)
[2022-09-09 03:12] LABS: Thyroid Stimulating Hormone 1.78 uIU/mL (0.47-4.68)
[2022-09-09 05:10] LABS: Appearance Urine UA CLEAR; Bilirubin Urine UA 1+ (NEGATIVE); Color Urine UA YELLOW; Glucose Urine UA TRACE g/dL (Negative); Ketones Urine UA NEGATIVE (NEGATIVE); Leukocyte Esterase Urine UA TRACE (NEGATIVE); Nitrite Urine UA NEGATIVE (Negative); Occult Blood Urine UA TRACE-LYSED (Negative); Protein Urine UA 3+ (Negative); Specific Gravity Urine UA 1.025 (1.000-1.035)
[2022-09-09 05:10] LABS: Add Manual Diff / Slide Review NO; Basophils Absolute Auto 100 /uL (0-100); Basophils Percent Auto 0.9 % (0-2); Eosinophils Absolute Auto 200 /uL (0-450); Eosinophils Percent Auto 1.8 % (2-4); Hemoglobin 15.4 g/dL (13.5-17.5); Lymphocytes Absolute Auto 1800 /uL (1100-4500); Lymphocytes Percent Auto 18.7 % (25-40); Mean Corpuscular HGB Conc 33.5 % (30-36); Mean Corpuscular Hemoglobin 28.5 PG (26-34); Monocytes Absolute Auto 700 /uL (0-900); Neutrophils Absolute Auto 6900 /uL (1500-7000); Neutrophils Percent Auto 71.6 % (50-75); Platelet Count 226 X10^3/uL (150-400); Red Blood Cell Count 5.41 X10^6/uL (4.5-5.9); Red Cell Distribution Width 13.8 % (11.6-14.8); White Blood Cell Count 9.6 X10^3/uL (4.5-11.0)
[2022-09-09 05:14] LABS: Ictotest Urine Negative (Negative)
[2022-09-09 05:38] LABS: BUN Creatinine Ratio 20.7 (6-22); Blood Urea Nitrogen 18 mg/dL (9-20); Calcium 8.7 mg/dL (8.4-10.2); Carbon Dioxide 21 mmol/L (22-32); Chloride 105 mmol/L (98-107); Cholesterol 173 mg/dL (140-199); Estimated Glomerular Filt Rate > 60 mL/min (>60); Glucose 145 mg/dL (70-100); HDL Cholesterol 32 mg/dL (40-60); HEMOLYSIS < 15 (0-50); LDL Cholesterol Calculated 117 mg/dL (<100); Magnesium 2.1 mg/dL (1.6-2.3); Potassium 4.7 mmol/L (3.4-5.1); Sodium 137 mmol/L (137-145); Triglycerides 118 mg/dL (35-150)
[2022-09-09 05:43] LABS: NT-proBNP (BNP-Adult 18+) 1640 pg/mL (<125)
[2022-09-09 05:46] LABS: Troponin I < 0.012 ng/mL (0.01-0.034)
--- NOTE | 2022-09-09 06:23 | PC.NURSE ---
Admit Note-Patient brought to ICU room 227 at 0230. A/Ox4, slightly flat affect, able to stand and transfer without chest pain, dizziness, or shortness of breath. HRR 120s-130s, esmolol gtt infusing at 50mcg/kg/min, BP 83/57, titrated down to 45mcg, but able to go up to 55mcg/kg/min by end of shift to get HR down, currently 115-120s, patient resting. Apnea noted, desatting to 80%, placed on 2L, LS CTA, RR 20s, afebrile.
[2022-09-09 07:06] LABS: Amorphous Sediment Urine 1+; Bacteria Urine Occasional (0-1); Hyaline Casts Urine 1-5/LPF; RBC Urine 0-1/HPF (0-5/HPF); Squamous Epithelial Cell Urine 0-1 /HPF (0-5/HPF); WBC Urine 1-5/HPF (0-5/HPF)
[2022-09-09 07:07] LABS: Culture Indicated Urine Specimen Cultured; Mucus Urine 1+ (Negative)
[2022-09-09] MEDS: ASPIRIN EC 81 MG TABLET PO (08:41)
[2022-09-09] MEDS: FUROSEMIDE 20 MG/2 ML VIAL 40 MG IV ×2 (08:41→20:45)
[2022-09-09] MEDS: APIXABAN 5 MG TABLET PO ×2 (08:41→20:45)
--- NOTE | 2022-09-09 09:20 | CM.DANOTE ---
DCP: Case received, EMR reviewed and met with patient. Friend, Deyanira, was at bedside. Was able to obtain information regarding patient's baseline activity status at home prior to hospitalization. DCP assessment completed with information currently available. Patient is a 51 year old male who admitted early this morning to the care of the hospitalist team. PCP: Dr. Naima Priest. Payer: confirmed: [facility]. Patient came to the hospital via private vehicle secondary to having bilateral lower extremity swelling. Patient indicated, his feet felt tight starting Saturday, and then noticed increased swelling in his lower legs, knees, testicular area. Patient denied chest pain, but some shortness of breath. Patient was noted to be in CHF, fluid overloaded. Patient holds diagnosis of sinus tachycardia, tachypnea, bilateral lowe extremity edema, likely new onset of CHF. Met with patient in his room. He was sitting up in bed, alert and oriented. His friend, Deyanira, was at bedside. Confirmed that patient resides in [place] with 18 year old son. At his baseline, he is independent, uses no DME. 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 He does have a provider, as listed, does not like to go to the doctor or dentist. P: DCP to continue to follow closely. Patient most likely will go home when stable, will continue with diuresis, echo. Carolina Galeas RN/Section Supervisor Discharge Planning/Care Management CM Discharge Assessment Start: 09/09/22 09:18 Freq: Status: Active Protocol: Document 09/09/22 09:18 (Rec: 09/09/22 09:19 [id number]) Discharge Planning Assessment Assigned Wet Trimmer Carolina Galeas RN/Section Supervisor Advance Directives? No Advance Directives on File No History Provided By Patient,Medical Record Prior Living Arrangements House Comment lives with 18 yr old son Household Members children Type of transporation used prior to Drives own vehicle admit Independent with ADL's Yes Is patient alert and oriented? Yes Caregiver for Another No Barriers to Discharge No Discharge Plan Home Transportation Arrangement Friend Referrals Initiated None needed Whiteboard Updated in Patient Room with Yes name and ext. # of Wet Trimmer Review Status In Process Next Review Type Continued Stay Review
[2022-09-09] MEDS: METOPROLOL IR 25 MG TABLET PO ×3 (09:28→20:46)
[2022-09-09 11:41] LABS: Troponin I 0.028 ng/mL (0.01-0.034)
[2022-09-10] VITALS (57 sets, daily range): BP systolic 85–126; BP diastolic 59–94; PULSE 91–127; RESP 13–48; TEMP 36.3–36.6; O2SAT 91–98
[2022-09-10] MEDS: ESMOLOL 2.5 GM/250 ML IV.SOLN IV ×4 (03:02→20:31)
[2022-09-10] MEDS: METOPROLOL IR 25 MG TABLET PO (03:03)
[2022-09-10 04:37] LABS: Blood Urea Nitrogen 24 mg/dL (9-20); Calcium 8.4 mg/dL (8.4-10.2); Carbon Dioxide 20 mmol/L (22-32); Chloride 102 mmol/L (98-107); Estimated Glomerular Filt Rate > 60 mL/min (>60); Glucose 147 mg/dL (70-100); HEMOLYSIS < 15 (0-50); Magnesium 2.2 mg/dL (1.6-2.3); Potassium 4.4 mmol/L (3.4-5.1); Sodium 135 mmol/L (137-145)
[2022-09-10 04:46] LABS: C-Reactive Protein Quant 1.2 mg/dL (<1.0)
--- NOTE | 2022-09-10 05:31 | PC.NURSE ---
0430- Patient up to shower. Vitals remained stable with limited increase in HR and saturations held. Discussed with patient his elevated blood sugars and the plan to draw a A1C. Patient verbalized understanding.
[2022-09-10 07:00] LABS: Hemoglobin A1C% w Est Avg Glu 6.5 % (4.0-6.0)
[2022-09-10] MEDS: APIXABAN 5 MG TABLET PO ×2 (09:51→20:31)
[2022-09-10] MEDS: METOPROLOL IR 25 MG TABLET 50 MG PO ×3 (09:51→20:31)
[2022-09-10] MEDS: DIGOXIN 500 MCG/2 ML AMPUL 250 MCG IV (09:51)
[2022-09-10] MEDS: FUROSEMIDE 80 MG in SODIUM CHLORIDE 0.9% 50 ML 116 MG IV ×2 (10:16→23:47)
--- NOTE | 2022-09-10 11:35 | P.PN_ITS ---
Subjective Subjective Date Patient Seen: 09/10/22 Time Patient Seen: 08:00 Interval history: Today he state he feels his legs are less swollen. He does not feel short of breath at rest. He has not been very active here. Exam Vital Signs (past 8 hours): - 09/10/22 04:10 09/10/22 04:10 09/10/22 04:30 Temperature 97.9 F Pulse Rate 119 H 108 H Respiratory Rate 33 H 23 Blood Pressure 111/80 Pulse Oximetry 96 93 Oxygen Delivery Method Oxygen Flow Rate 09/10/22 04:30 09/10/22 04:33 09/10/22 05:00 Temperature Pulse Rate 108 H Respiratory Rate 24 Blood Pressure 119/67 Pulse Oximetry 95 Oxygen Delivery Method Room Air Oxygen Flow Rate 09/10/22 05:00 09/10/22 05:00 09/10/22 05:30 Temperature Pulse Rate 108 H Respiratory Rate 22 Blood Pressure 108/83 109/76 Pulse Oximetry 93 Oxygen Delivery Method Oxygen Flow Rate 2 2 2 09/10/22 05:30 09/10/22 05:44 09/10/22 06:00 Temperature Pulse Rate 104 H 112 H 117 H Respiratory Rate 22 26 H 48 H Blood Pressure Pulse Oximetry 95 96 Oxygen Delivery Method Oxygen Flow Rate 2 2 09/10/22 06:00 09/10/22 06:24 09/10/22 07:18 Temperature 97.3 F L Pulse Rate 112 H Respiratory Rate 31 H Blood Pressure 108/68 Pulse Oximetry 97 Oxygen Delivery Method Oxygen Flow Rate 09/10/22 09:51 09/10/22 09:00 09/10/22 11:00 Temperature Pulse Rate 110 H 122 H Respiratory Rate 30 H Blood Pressure 113/64 126/94 H Pulse Oximetry 96 Oxygen Delivery Method Room Air Oxygen Flow Rate 09/10/22 06:30 09/10/22 06:31 09/10/22 06:31 Temperature Pulse Rate 113 H 116 H Respiratory Rate 31 H 28 H Blood Pressure 103/81 Pulse Oximetry 96 97 Oxygen Delivery Method Oxygen Flow Rate 09/10/22 07:00 09/10/22 07:00 09/10/22 07:30 Temperature Pulse Rate 109 H 110 H Respiratory Rate 31 H 37 H Blood Pressure 102/74 Pulse Oximetry 96 94 Oxygen Delivery Method Oxygen Flow Rate 09/10/22 07:31 09/10/22 07:31 09/10/22 08:12 Temperature Pulse Rate 112 H 120 H Respiratory Rate 31 H 36 H Blood Pressure 103/78 Pulse Oximetry 96 Oxygen Delivery Method Oxygen Flow Rate 09/10/22 08:30 09/10/22 08:30 09/10/22 09:00 Temperature Pulse Rate 120 H 122 H Respiratory Rate 30 H 34 H Blood Pressure 115/83 Pulse Oximetry 95 Oxygen Delivery Method Oxygen Flow Rate 09/10/22 09:01 09/10/22 09:01 09/10/22 09:30 Temperature Pulse Rate 122 H Respiratory Rate 28 H Blood Pressure 115/88 113/84 Pulse Oximetry 97 Oxygen Delivery Method Oxygen Flow Rate 09/10/22 09:30 09/10/22 10:00 09/10/22 10:00 Temperature Pulse Rate 116 H 111 H Respiratory Rate 17 24 Blood Pressure 116/77 Pulse Oximetry 96 95 Oxygen Delivery Method Oxygen Flow Rate 09/10/22 10:30 09/10/22 10:31 09/10/22 10:31 Temperature Pulse Rate 127 H 127 H Respiratory Rate 28 H 34 H Blood Pressure 125/93 H Pulse Oximetry 96 95 Oxygen Delivery Method Oxygen Flow Rate 09/10/22 11:00 09/10/22 11:00 Temperature Pulse Rate 118 H Respiratory Rate 33 H Blood Pressure 126/94 H Pulse Oximetry 96 Oxygen Delivery Method Oxygen Flow Rate Fraction of Inspired Oxygen 21 SaO2/FiO2 Ratio 457 Oxygen Delivery Method Room Air Oxygen Flow Rate 2 Narrative Exam Narrative: GEN: mild respiratory distress CV: irregular, tachcyardic PULM: crackles bilaterally, decreased breath sounds at bases, +JVD ABD: soft, nontender, nondistended, no organomely EXT: warm and well perfused, 2+ pitting edema Objective Labs Result Diagrams: 09/09/22 04:29 09/10/22 04:15 Labs: Laboratory Results - last 24 hr 09/09/22 09/10/22 09/10/22 11:05 04:15 04:15 Sodium 135 L Potassium 4.4 Chloride 102 Carbon Dioxide 20 L BUN 24 H Creatinine 0.89 Estimated GFR > 60 BUN/Creatinine Ratio 27.0 H Glucose 147 H Hemoglobin A1c Calcium 8.4 Magnesium 2.2 Troponin I 0.028 C-Reactive Protein 1.2 H 09/10/22 04:15 Sodium Potassium Chloride Carbon Dioxide BUN Creatinine Estimated GFR BUN/Creatinine Ratio Glucose Hemoglobin A1c 6.5 H Calcium Magnesium Troponin I C-Reactive Protein [facility] Medical History (Updated 09/09/22 @ 05:57 by MARIELLA Awan) BMI 40.0-44.9, adult Surgical History (Updated 09/09/22 @ 05:57 by MARIELLA Awan) History of hernia repair History of tonsillectomy Family History Other Adopted Social History household members: children Smoking Status: Never smoker Assessment & Plan Assessment & Plan narrative: 1. Tachycardia -on tele strip appears primarily atrial flutter, with episodes of atrial fibrillation -presented with heart rate in 150s -started on esmolol drip with rates improved to 110s-120s -attempt to wean off esmolol, will increase metoprolol to 50 q6, and give one time 250 dose of digoxin -if not improved could increase metop and give additional digoxin, but rate appears difficult to control, may need to trial amiodarone, and if not successful consider aure and cardioversion -chadsvasc 2 is difficult to determine as he does not see MDs regularly, however he appears to be new diagnosis of chf and diabetes which would make his score at least 2 and recommend eliquis 2. Acute systolic CHF exacerbation with acute hypoxemic respiratory failure -BNP elevated, with pulmonary edema, and lower extremity edema on admit consistent with CHF exacerbation -TTE shows EF ~25% with MR and TR noted -TTE shows global hypokinesis, probably secondary to prolonged tachycardia -troponins negative, TSH negative -indicated for beta-aubrey with metoprolol having been started as above -plan for bri/arb prior to dc -not diuresing significantly with IV lasix, increase to 80mg IV BID, goal net negative 1-2L daily 3. Type 2 Diabetes -new diagnosis for patient -a1c of 6.5 -consider discharge on oral regimen -low dose insulin sliding scale Time Spent With Patient Critical Care time: I spent a total of [] minutes of critical care time on this patient's care today; this time is exclusive of procedural time. Quality VTE Deep Vein Thrombosis/Pulmonary Embolism Present on Admission: No
[2022-09-10] MEDS: INSULIN LISPRO 100 UNIT/ML 3ML VIAL SUBCUT (12:14)
[2022-09-10 13:45] LABS: BUN Creatinine Ratio 28.6 (6-22); Blood Urea Nitrogen 26 mg/dL (9-20); Calcium 8.6 mg/dL (8.4-10.2); Carbon Dioxide 24 mmol/L (22-32); Chloride 100 mmol/L (98-107); Estimated Glomerular Filt Rate > 60 mL/min (>60); Glucose 147 mg/dL (70-100); HEMOLYSIS 23 (0-50); Magnesium 2.2 mg/dL (1.6-2.3); Potassium 4.4 mmol/L (3.4-5.1); Sodium 137 mmol/L (137-145)
[2022-09-10] MEDS: DOCUSATE 100 MG CAPSULE PO (17:36)
[2022-09-10] MEDS: SIMETHICONE 80 MG TABLET PO ×2 (17:36→22:35)
--- NOTE | 2022-09-10 20:59 | PC.NURSE ---
esmolol infusion when this RN took over care of pt at 1930 Esmolol infusion rate is 43.2ml/hr with HR in the low 100s.
[2022-09-11] VITALS (36 sets, daily range): BP systolic 105–132; BP diastolic 74–96; PULSE 88–109; RESP 18–45; TEMP 36.6–37; O2SAT 90–99
[2022-09-11] MEDS: ESMOLOL 2.5 GM/250 ML IV.SOLN IV ×2 (03:00→07:37)
[2022-09-11] MEDS: METOPROLOL IR 25 MG TABLET 50 MG PO ×4 (04:21→20:24)
[2022-09-11 04:58] LABS: BUN Creatinine Ratio 30.6 (6-22); Blood Urea Nitrogen 30 mg/dL (9-20); Carbon Dioxide 25 mmol/L (22-32); Chloride 99 mmol/L (98-107); Estimated Glomerular Filt Rate > 60 mL/min (>60); Glucose 112 mg/dL (70-100); HEMOLYSIS 27 (0-50); Potassium 3.9 mmol/L (3.4-5.1); Sodium 135 mmol/L (137-145)
--- NOTE | 2022-09-11 06:35 | PC.NURSE ---
OOB to chair; denies dizzness or chest pain. Stood and marched in place for a few minutes before sitting in recliner. Encouraged to elevate feet to help with swelling to BLE. Patient declined at this time.
[2022-09-11] MEDS: DOCUSATE 100 MG CAPSULE PO ×2 (08:45→20:24)
[2022-09-11] MEDS: APIXABAN 5 MG TABLET PO ×2 (08:45→20:24)
[2022-09-11] MEDS: FUROSEMIDE 80 MG in SODIUM CHLORIDE 0.9% 50 ML 116 MG IV (09:57)
--- NOTE | 2022-09-11 13:16 | DIET.CONS2 ---
Dietary Inpatient Consultation Note Admission Date: 09/09/2022 01:34 RD consult for BMI 40. RD to provide new CHF nutrition education when pt returns from [facility]. Diet: 09/09/22 Breakfast Fluid Restriction Diet Diet Modifications: Total fluid amount: 2,000 Amount allotted to patient trays: 100 Free water included in total: Yes Fluid in addition to trays: 3889-4927 amount: 850 [id number] amount: 850 Heart Healthy Diet Diet Modifications: Low Sodium Diet (2gm) Diet Modifications: 09/12/22 00:01 NPO Diet Diet Modifications: NPO Type: NPO after Midnight Nutrition Percent Meal Consumed 50% 09/10/22 18:17 Percent Meal Consumed 50% 09/10/22 13:00 Percent Meal Consumed 75% 09/10/22 09:38 Percent Meal Consumed 75% 09/09/22 21:37 Electronically Signed by: Chayo Acosta 09/11/22 13:16 Clinical Dietitian [address] [address]
--- NOTE | 2022-09-11 15:35 | P.PN_ITS ---
Subjective Subjective Date Patient Seen: 09/11/22 Interval history: He reports improved breathing and swelling today. HR is improved, now off of esmolol infusion. Remains in a-flutter on monitor, rate now in the low 100s. Was to be transferred to [facility] for [facility] / cardioversion for rhyhtm control, however unable to arrange ambulance transport, delayed until tomorrow. He still needs significant diuresis. Exam Vital Signs (past 8 hours): - 09/11/22 08:00 09/11/22 08:00 09/11/22 08:30 Temperature Pulse Rate 91 H 104 H Respiratory Rate 24 32 H Blood Pressure 116/85 Pulse Oximetry 96 96 Oxygen Delivery Method Oxygen Flow Rate 09/11/22 09:00 09/11/22 09:00 09/11/22 09:30 Temperature 98 F Pulse Rate 104 H 108 H Respiratory Rate 31 H 34 H Blood Pressure 115/88 Pulse Oximetry 96 Oxygen Delivery Method Oxygen Flow Rate 0 09/11/22 08:52 09/11/22 10:00 09/11/22 10:00 Temperature Pulse Rate 103 H Respiratory Rate 33 H Blood Pressure 121/78 Pulse Oximetry 95 Oxygen Delivery Method Room Air Oxygen Flow Rate 09/11/22 10:30 09/11/22 11:00 09/11/22 11:00 Temperature Pulse Rate 104 H 102 H Respiratory Rate 35 H 37 H Blood Pressure 118/88 Pulse Oximetry 96 94 Oxygen Delivery Method Oxygen Flow Rate 09/11/22 11:30 09/11/22 12:00 09/11/22 12:00 Temperature Pulse Rate 100 H 99 H Respiratory Rate 34 H 23 Blood Pressure 115/78 Pulse Oximetry 94 90 L Oxygen Delivery Method Oxygen Flow Rate 09/11/22 12:30 09/11/22 13:00 09/11/22 13:00 Temperature Pulse Rate 92 H 96 H Respiratory Rate 22 26 H Blood Pressure 117/83 Pulse Oximetry 92 95 Oxygen Delivery Method Oxygen Flow Rate 09/11/22 13:30 09/11/22 14:00 09/11/22 14:00 Temperature 98.6 F Pulse Rate 98 H 100 H Respiratory Rate 29 H 25 H Blood Pressure 115/79 Pulse Oximetry 97 94 Oxygen Delivery Method Oxygen Flow Rate 0 Fraction of Inspired Oxygen 21 SaO2/FiO2 Ratio 457 Oxygen Delivery Method Room Air Oxygen Flow Rate 0 Narrative Exam Narrative: GEN: no acute distress CV: regular and tachycardic, flutter on monitor, no m/r/g. PULM: crackles bilaterally, decreased breath sounds at bases, +JVD ABD: soft, nontender, nondistended, no organomely EXT: warm and well perfused, 2+ pitting edema Objective Labs Result Diagrams: 09/09/22 04:29 09/11/22 04:09 Labs: Laboratory Results - last 24 hr 09/11/22 04:09 Sodium 135 L Potassium 3.9 Chloride 99 Carbon Dioxide 25 BUN 30 H Creatinine 0.98 Estimated GFR > 60 BUN/Creatinine Ratio 30.6 H Glucose 112 H Calcium 8.0 L Magnesium 2.0 [facility] Medical History (Updated 09/09/22 @ 05:57 by MARIELLA Awan) BMI 40.0-44.9, adult Surgical History (Updated 09/09/22 @ 05:57 by MARIELLA Awan) History of hernia repair History of tonsillectomy Family History Other Adopted Social History household members: children Smoking Status: Never smoker Assessment & Plan Assessment & Plan narrative: 1. atrial fibrillation and flutter with RVR -on tele strip appears primarily atrial flutter, with episodes of atrial fibrillation -presented with heart rate in 150s -started on esmolol drip with rates improved to 110s-120s, -now off esmolol, metoprolol currently 50 q6, and give one time 250 dose of digoxin. Rates in the low 100s now. -plan for [facility] / cardioversion at [facility] on 09/12 at around 3pm. Will return here after procedure. Discussed case with Dr. Reynoso at [facility] today. -continue eliquis for stroke prevention. 2. Acute systolic CHF exacerbation with acute hypoxemic respiratory failure -BNP elevated, with pulmonary edema, and lower extremity edema on admit consistent with CHF exacerbation -TTE shows EF ~25% with MR and TR noted -TTE shows global hypokinesis, probably secondary to prolonged tachycardia -troponins negative, TSH negative -indicated for beta-aubrey with metoprolol having been started as above -plan for bri/arb prior to dc depending on rate control. -not diuresing significantly with 40 mg IV lasix, increased to 80mg IV BID, goal net negative 1-2L daily. Net negative 3L last 24 hours, will continue current dosing given good progress on edema without significant bump in creatinine. 3. Type 2 Diabetes -new diagnosis for patient -a1c of 6.5 -consider discharge on oral regimen / metformin. -low dose insulin sliding scale for now Code: Full DVT: on apixaban Dispo: anticipate discharge home in 2-3 days, plan for transfer to [facility] for Y[facility] cardioversion tomorrow afternoon, will return here after procedure. COVID-19 COVID-19 status: Negative Time Spent With Patient Critical Care time: I spent a total of [] minutes of critical care time on this patient's care today; this time is exclusive of procedural time. Quality VTE Deep Vein Thrombosis/Pulmonary Embolism Present on Admission: No
--- NOTE | 2022-09-11 16:17 | CM.DPNOTE ---
DCP Cont: Per MD, pt accepted at [facility] for [facility] for treat and return and initially attempting to get pt to [facility] between [id number] but per set key driver no BLS transport available during that time from [facility] or [facility] and will continue attempting to coordinate [facility] time and transport for pt. Per MD, once Y[facility]ELY completed then pt will return and remain overnight and likely be able to d/c home if confirmed stable. KIRK Jovel
[2022-09-11 22:09] LABS: BUN Creatinine Ratio 41.2 (6-22); Blood Urea Nitrogen 35 mg/dL (9-20); Calcium 8.7 mg/dL (8.4-10.2); Carbon Dioxide 26 mmol/L (22-32); Chloride 100 mmol/L (98-107); Estimated Glomerular Filt Rate > 60 mL/min (>60); Glucose 138 mg/dL (70-100); HEMOLYSIS 50 (0-50); Magnesium 2.3 mg/dL (1.6-2.3); Potassium 4.2 mmol/L (3.4-5.1); Sodium 136 mmol/L (137-145)
[2022-09-12] VITALS: BP 127/84; PULSE 88; RESP 18; TEMP 36.2; O2SAT 98
[2022-09-12 04:00] VITALS: BP 131/63; PULSE 97; RESP 18; TEMP 36.4; O2SAT 93
--- NOTE | 2022-09-12 06:46 | PC.NURSE ---
09/11/22 2100 BMP and Mag labs ordered and hold night dose of Furosemide 80mg per Dr. Verdin.
[2022-09-12 08:00] VITALS: BP 135/99; PULSE 103; RESP 20; TEMP 36.6; O2SAT 96
--- NOTE | 2022-09-12 08:31 | PM.PN.1 ---
Subjective Subjective Interval history: No chest pain or dyspnea. No bleeding. Exam Vital Signs (past 8 hours): - 09/12/22 04:00 Temperature 97.5 F L Pulse Rate 97 H Respiratory Rate 18 Blood Pressure 131/63 Pulse Oximetry 93 Fraction of Inspired Oxygen 21 SaO2/FiO2 Ratio 457 Oxygen Delivery Method Room Air Oxygen Flow Rate 0 Const General: cooperative and healthy appearing [facility] Head: normal to inspection Face and sinus: normal facial exam Eyes General: appearance normal, both eyes and all related structures Conjunctivae: conjunctivae normal Sclera: sclerae normal Neck Neck: normal visual inspection and full ROM Chest Chest: normal inspection of the chest Resp Effort & Inspection: normal respiratory effort Auscultation: clear to auscultation bilaterally Cardio Other: regular and rate controlled, no murmur. GI Inspection: normal to inspection Palpation: soft and no hepatosplenomegaly Auscultation: normal bowel sounds Skin General: no rashes or lesions noted Neuro General: patient alert, patient awake and patient oriented x3 Extrem General: normal to inspection Psych Appearance: grossly normal Mental Status: mental status grossly normal Speech and Movement: speech and movement normal Objective Labs Result Diagrams: 09/09/22 04:29 09/11/22 21:29 Labs: Laboratory Results - last 24 hr 09/11/22 21:29 Sodium 136 L Potassium 4.2 Chloride 100 Carbon Dioxide 26 BUN 35 H Creatinine 0.85 Estimated GFR > 60 BUN/Creatinine Ratio 41.2 H Glucose 138 H Calcium 8.7 Magnesium 2.3 PFSH Medical History BMI 40.0-44.9, adult Surgical History History of hernia repair History of tonsillectomy Family History Other Adopted Social History household members: children Smoking Status: Never smoker Assessment & Plan Assessment & Plan narrative: 1. Atrial fibrillation and flutter with RVR, present on admission and active. - primarily atrial flutter - presented with heart rate in 150s - started on esmolol drip with rates improved to 110s-120s, - now off esmolol, metoprolol currently 50 q6, and give one time 250 dose of digoxin. Rates in the low 100s now. - plan for [facility] / cardioversion at [facility] on 09/12 at around 3pm ([place]). Will return here after procedure. Discussed case with Dr. Reynoso at [facility] 09/11. - continue eliquis for stroke prevention. 2. Acute systolic CHF exacerbation, present on admission and active -BNP elevated, with pulmonary edema, and lower extremity edema on admit consistent with CHF exacerbation -TTE shows EF ~25% with MR and TR noted -TTE shows global hypokinesis, probably secondary to prolonged tachycardia -troponins negative, TSH negative -plan for bri/arb prior to discharge. -not diuresing significantly with 40 mg IV lasix, increased to 80mg IV BID. 3. Acute hypoxic respiratory failure, present on admission and active. -continue diuresis. 4. Type 2 Diabetes, present on admission and active, -new diagnosis for patient -a1c of 6.5 -consider discharge on oral regimen / metformin. -low dose insulin sliding scale for now Code: Full DVT: on apixaban Dispo: anticipate discharge home later today after procedure. Time Spent With Patient Critical Care time: I spent a total of [] minutes of critical care time on this patient's care today; this time is exclusive of procedural time. Quality VTE Deep Vein Thrombosis/Pulmonary Embolism Present on Admission: No
[2022-09-12] MEDS: lisinopriL 5 MG TABLET PO (08:47)
[2022-09-12] MEDS: APIXABAN 5 MG TABLET PO ×2 (08:47→18:36)
[2022-09-12] MEDS: METOPROLOL IR 25 MG TABLET 50 MG PO ×2 (08:47→13:57)
[2022-09-12] MEDS: FUROSEMIDE 80 MG in SODIUM CHLORIDE 0.9% 50 ML 116 MG IV (10:30)
--- NOTE | 2022-09-12 15:13 | PC.NURSE ---
Day Shift Note Pt NPO since midnight, left at 1415 for [facility] cardioversion at [facility] via ambulance. Aflutter in the 90-110s. Steady on feet, ambulating in halls. Denies shortness of breath, denies chest pain.
--- NOTE | 2022-09-12 16:02 | DIET.CONS ---
Dietary Consultation Note Admission Date: 09/09/2022 01:34 Assessment: 51y M admitted for new onset heart failure, pt was consulted due to high BMI of 40.8. Pt with no known hx preDM, A1c 6.5 today. Pt diet consist of highly processed, convenience items high in sugar and sodium due to a busy schedule. Pt drinking full sugar sodas, chips, and reports not meal planning. 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 Pt's friend in room who helps him with shopping and is supportive of healthy changes. Due to pts high sugar diet, recc repeat A1c in 3 months after pt makes dietary changes to assess need for dx DM2 vs preDM. Ht: 187.96 cm Wt: 143 kg BMI: 40.8 Last BM: 09/11/22 (09/11/22 20:00) MNA: 14 Paresh Score: 23 Diet: 09/12/22 00:01 NPO Diet Diet Modifications: NPO Type: NPO after Midnight Nutrition Percent Meal Consumed 75% 09/11/22 18:49 Percent Meal Consumed 100% 09/11/22 14:55 Percent Meal Consumed 50% 09/10/22 18:17 Labs: RBC 5.41 X10^6/uL (4.5-5.9) 09/09/22 04:29 Hgb 15.4 g/dL (13.5-17.5) 09/09/22 04:29 Hct 46.0 % (41-53) 09/09/22 04:29 Creatinine 0.85 mg/dL (0.66-1.25) 09/11/22 21:29 Hemoglobin A1c 6.5 % (4.0-6.0) H 09/10/22 04:15 NT-Pro-B Natriuret Pep 1640 pg/mL (<125) H 09/09/22 04:29 Nutrition Diagnosis: Nutrition knowledge deficit r/t practical implementation of healthy diet aeb BMI of 40.8, recent heart failure diagnosis, pre-diabetic, and diet recall. Interventions: 1. Educated pt on low sodium diet using handout. Discussed ways to make easy changes so pt does not get overwhelmed. Pt seemed very motivated and ready to make changes. 2. Due to pre diabetic status, discussed the importance of reducing added sugar intake with some simple food/alexsander swaps to prevent diabetes. EER: 2,000mg sodium no more than 600mg at a meal, no more than 25g added sugar per day Monitoring/Evaluations: pt would benefit from OP nutrition visits to support lifestyle changes Electronically Signed by: Chayo Acosta 09/12/22 16:02 Clinical Dietitian [address] [address]
--- NOTE | 2022-09-12 18:23 | P.DS_ITS ---
History of Present Illness History of Present Illness Date Patient Seen: 09/12/22 Chief complaint: Foot/knee/groin swelling Narrative: Chief complaint: Foot/knee/groin swelling Narrative: Giorgio Escoto is a 51-year-old male with no known medical history, no medications who presents with bilateral lower extremity swelling x1 week but is worsened in the last 24 hours, initially swelling in the lower legs,? today noticed swelling from the knees up to the testicular area.? Patient notes increasing mild shortness of breath, with orthopnea.? Denies chest pain, unable to lie flat, denies fevers, body aches, chills, lightheadedness, LOC, nausea, vomiting, diaphoresis, back pain, urinary urgency frequency dysuria, hematuria, melena, changes in bowel, cough, congestion, ear or eye discomfort, recent injury or trauma.? Some abdominal fullness due to constipation.? Patient's has no sensati on or symptoms his tachycardia.? Patient states he has a PCP but does not get annual checks.? He denies any drug allergies.? No tobacco, he reports a distant history smoking.? alcoholic drinks 2 or 3 times weekly.? Denies any illicit.? States he is adopted and does not know his family history.? He notes that he had some sort of viral illness over [place] vacation he works as a preschool program director.? Patient states his only family currently is his 18-year-old son who lives with the patient. In the ED patient's blood pressure is ran between 135/92 to 117/80, HR 152-148, patient's tachycardia was resistant to 12 mg of adenosine, and 5 mg of metoprolol.? Patient's labs are predominantly unremarkable, stable potassium 3.9, magnesium 2.1, elevated PT 15, with normal INR 1.5, D-dimer 1570, CTA is ne gative for PE noted mild cardiomegaly a mild generalized pulmonary edema bilaterally, small to moderate bilateral post free-flowing pleural effusion.? Negative COVID, during admit exam patient's O2 saturation dropped to 80% on room air multiple times, and was extremely labile, patient was placed on 2 L nasal cannula. troponins negative x2, EKG sinus tachycardia rate 140, P-QRS, no ST or T-wave changes.? No notes, labs, or diagnostics for comparison.? Vascular ultrasound of lower extremities are negative for DVT.? Patient admitted for tachycardia, tachypnea, bilateral lower extremity edema, new onset CHF, acute respiratory failure with hypoxia. From H&P. Discharge Providers Provider Date of admission: 09/09/22 01:34 Discharge Date: 09/12/22 Primary care physician: Naima Priest PA-C Consults: Cardiology for [facility] Cardioversion at [facility]. Discharge provider: Valdo Polo MD Summary Hospital Course Discharge Diagnosis: 1. Atrial flutter with rapid ventricular response, present on admission and improved 2. Acute diastolic heart failure, present on admission and improved 3. Hypertension, present on admission and improved 4. Left atrial appendage clot, present on admission and active Hospital Course: Patient was admitted with new atrial flutter with rapid ventricular response. He initially read small drip for rate control and then was oriented to oral m etoprolol. The patient was started on Eliquis as well. The patient also had hypertension was started on lisinopril and diuresed for general volume overload. The patient had good rate control and was discussed with Cardiology and ultimately he was transported to [facility] on September 12 for [facility] and cardioversion. Unfortunately found to have a clot in the left atrial appendage and could not be personally discussed the situation with the promotions producer 4 weeks of anticoagulation with follow up with Cardiology saturation of a delayed cardioversion. This is explained to the patient detail. Otherwise asymptomatic will be urged Riccardo chronic anticoagulation. He had a depressed EF on ECHO likely from a tachy mediated cardiomyopathy. He will be discharged without diuretics and with close follow up. Status at Discharge Cognitive/behavioral status at discharge: at baseline, oriented Functional status at discharge: independent ambulation Overall status at discharge: patient is back to baseline Time Spent with Patient Time spent: Greater than 30 minutes Exam Vital Signs (past 8 hours): Fraction of Inspired Oxygen 21 SaO2/FiO2 Ratio 457 Oxygen Delivery Method Room Air Oxygen Flow Rate 0 Const General: cooperative and healthy appearing Orientation: alert and oriented x3 HENMT Head: normal to inspection Eyes Sclera: sclerae normal Resp Effort & Inspection: normal respiratory effort Auscultation: clear to auscultation bilaterally Cardio Rate: regular rate Rhythm: regular rhythm Heart Sounds: S1 normal and S2 normal Skin General: no rashes or lesions noted Neuro Speech: speech normal Extrem General: edema Psych Appearance: grossly normal Mental Status: mental status grossly normal Speech and Movement: speech and movement normal Objective Imaging Echo: Radiologist's impression: Summary The patient was in atrial flutter with heart rates between 110-120 bpm during the exam. ? The left ventricle is normal in size. The ejection fraction is estimated to be 20-25%. There is severe global hypokinesis of the left ventricle. There is no thrombus. ? The right ventricle is grossly normal size. Right ventricular systolic function is moderately reduced. ? There is severe biatrial enlargement. ? There is moderate mitral regurgitation. The mitral regurgitant jet is eccentrically directed. There is moderate tricuspid regurgitation. The right ventricular systolic pressure is estimated to be at least 33 mmHg based on an estimated right atrial pressure of 15 mm Hg. ? The study quality was technically difficult. Labs Result Diagrams: 09/09/22 04:29 09/11/22 21:29 Labs: Laboratory Results - last 24 hr 09/11/22 21:29 Sodium 136 L Potassium 4.2 Chloride 100 Carbon Dioxide 26 BUN 35 H Creatinine 0.85 Estimated GFR > 60 BUN/Creatinine Ratio 41.2 H Glucose 138 H Calcium 8.7 Magnesium 2.3 PFSH Medical History BMI 40.0-44.9, adult Surgical History History of hernia repair History of tonsillectomy Family History Other Adopted Social History household members: children Smoking Status: Never smoker Discharge Assessment & Plan Assessment and Plan Assessment: 1. Atrial fibrillation and flutter with RVR, present on admission and active. - primarily atrial flutter - presented with heart rate in 150s - started on esmolol drip with rates improved to 110s-120s, - now off esmolol, metoprolol currently 50 q6, and give one time 250 dose of digoxin. Rates in the low 100s now. - continue eliquis for stroke prevention. 2. Acute systolic CHF exacerbation (tachy carrdiomyopathy), present on admission and active -TTE shows EF ~25% with MR and TR noted -TTE shows global hypokinesis, probably secondary to prolonged tachycardia 3. Acute hypoxic respiratory failure, present on admission and resolved. 4. Type 2 Diabetes, present on admission and active, -new diagnosis for patient -a1c of 6.5 -consider discharge on oral regimen / metformin. -defer to PCP at FU 5. Left atrial clot, present on admission and active -anticoagulation for 4 weeks and OP cardiology FU. Discharge Plan Discharge Plan Patient Disposition: Home Provider Discharge Comment: See your PCP this week and get a referral to cardiology as soon as possible. Discharge orders & Medications Prescriptions: New lisinopril 5 mg Tablet 5 mg PO DAILY Qty: 30 2RF metoprolol tartrate 25 mg Tablet 50 mg PO Q6H Qty: 30 3RF Eliquis 5 mg Tablet 5 mg PO BID Qty: 60 2RF Follow up/Referrals: Naima Priest PA-C [Primary Care Provider] - 3-5 Days Diet/Activity/Treatments Diet: Diet as Tolerated Visit Report/Discharge Packet Instructions: DI for Heart Failure, DI for Atrial Flutter, Metoprolol, Apixaban Stand Alone Forms: Patient Portal/API, Stroke Signs & Symptoms Discharge Data Primary Care Provider: Naima Priest Quality VTE Deep Vein Thrombosis/Pulmonary Embolism Present on Admission: No
== END 2022-09-12 19:19 | disposition home or self-care (01) | DRG 308 ==
LOC: ED 09-09 01:16 → AC 09-09 01:35 → ICU 09-09 02:47
PROVIDERS: Internal Medicine; Admitting Provider Nurse Practitioner Family; Emergency Provider Emergency Medicine; Family Provider Physician Assistant Medical; PCP Physician Assistant Medical; Referring Provider Emergency Medicine; Visit Provider Nurse Practitioner Family
DX: I48.92 Unspecified atrial flutter (principal); I50.21 Acute systolic (congestive) heart failure; J96.01 Acute respiratory failure with hypoxia; Z68.41 Body mass index [BMI] 40.0-44.9, adult; R00.0 Tachycardia, unspecified; E66.9 Obesity, unspecified; E11.9 Type 2 diabetes mellitus without complications; I48.91 Unspecified atrial fibrillation; I11.0 Hypertensive heart disease with heart failure; I51.3 Intracardiac thrombosis, not elsewhere classified; Z20.822 Contact with and (suspected) exposure to COVID-19; Z87.891 Personal history of nicotine dependence
CPT/HCPCS: 36415; 71045; 71275; 80048; 80053; 80061; 80305; 80320; 81001; 82550; 82553; 82962; 83036; 83690; 83735; 83880; 84145; 84439; 84443; 84484; 85025; 85379; 85610; 85730; 86140; 87086; 87635; 87797; 93005; 93010; 93306; 93970; 96365; 96375; 99284; 99285; C9803; J0153; J1160; J1815; J1940; Q9957; Q9967